=== PATIENT | female | born 1985 | race Caucasian/White ===

== ENCOUNTER 2022-01-22 15:13 | Outpatient (CLI) | payer MEDICAID, SELFPAY | END 2022-01-22 15:14 | disposition home or self-care (01) | LOC: LKVREF 02-04 10:29 | PROVIDERS: Visit Provider Nurse Practitioner Family | DX: R30.0 Dysuria (principal); N39.0 Urinary tract infection, site not specified | CPT/HCPCS: 87086; 87186 ==